=== PATIENT | female | born 1970 | race Two or more races ===

== ENCOUNTER 2020-09-26 14:13 | Emergency (ER) | payer SELFPAY ==
[~2020-09-26] VITALS: Ht 157.5 cm; Wt 68.0 kg
[2020-09-26 14:39] VITALS: BP 166/113
[2020-09-26] MEDS ORDERED: KETOROLAC TROMETH 60MG/2ML VIAL IM ONE (15:30)
== END 2020-09-26 15:46 | disposition home or self-care (01) ==
LOC: ER 14:13
DX: G43.909 Migraine, unspecified, not intractable, without status migrainosus (principal)
CPT/HCPCS: 70450; 96372; 99284; J1885